=== PATIENT | male | born 1945 | race Caucasian/White ===

== ENCOUNTER 2017-03-27 11:15 | Day surgery (SDC) | payer MEDICARE, BC ==
[2017-03-26 10:01] VITALS: BMI 26.9
[2017-03-27] MEDS ORDERED: Bupivacaine PF 0.5% 30 ML VIAL ONE (11:46)
[2017-03-27] MEDS ORDERED: Fentanyl 100 MCG/2 ML VIAL ONE (11:52)
[2017-03-27] MEDS ORDERED: Lidocaine 1% PF 5 ML VIAL ONE (12:40)
[2017-03-27] MEDS ORDERED: ePHEDrine/0.9% NaCl/PF SYRINGE 50 mg/10 ml ONE (12:40)
[2017-03-27] MEDS ORDERED: Ondansetron HCl/PF 4 MG/2 ML Vial ONE (12:40)
[2017-03-27] MEDS ORDERED: Propofol 200 MG/20 ML VIAL ONE (12:40)
[2017-03-27] MEDS ORDERED: HYDROcodone/Acetaminophen 5/325 mg Tablet ONE (15:07)
--- NOTE | 2017-03-27 15:19 | OP ---
DATE OF SURGERY: 03/27/2017 SURGEON: Ofelia Young DPM. PREOPERATIVE DIAGNOSES: Osteomyelitis, left great toe, hardware, left great toe, chronic ulcer, lef t great toe. POSTOPERATIVE DIAGNOSES: Osteomyelitis, left great toe, hardware, left great toe, chronic ulcer, le ft great toe. PROCEDURES PERFORMED: Removal of screw, left great toe; amputation, left great toe. INJECTABLES: 10 mL of 0.5% Marcaine plain. ANESTHESIA: TIVA with toe block. HEMOSTASIS: Pneumatic ankle tourniquet at 300 mmHg. ESTIMATED BLOOD LOSS: 5 mL MATERIALS: 3-0 Vicryl and 3-0 Prolene. PROCEDURE: The patient was brought into the operating room, and placed on the operating table in stapleton pine position. Well-padded pneumatic ankle tourniquet was placed about the patient's left ankle fol lowing administration of IV anesthesia. Local foot block was given utilizing 10 mL of 0.5% Marcaine plain. The foot was then scrubbed, prepped and draped in the usual aseptic manner. Esmarch bandag e was used to exsanguinate the patient's left foot and the pneumatic ankle tourniquet was inflated t o 300 mmHg, which provided adequate hemostasis throughout the entire procedure. Next, attention was then directed to the dorsal aspect of the patient's left great toe, where a fish-mouth incision was made encompassing the distal aspect of the digit. Upon adequate exposure of the head of the proxim al phalanx, it was carefully resected and passed from the operative field. Next, the implanted scre w was then identified and removed from the proximal phalanx. The wound was irrigated with copious a cora of sterile normal saline. The area was inspected; no remaining necrotic bone was noted. The subcuticular structures were then reapproximated and coapted utilizing 3-0 Vicryl. The skin was cl osed and reapproximated utilizing 3-0 Prolene in a simple interrupted suture technique. A light com pressive dressing was placed on the patient's left foot and the pneumatic ankle tourniquet was relea sed with prompt hyperemic response noted to all digits of left foot. The patient tolerated the proc edure and anesthesia and was transferred to the recovery room with vital signs stable and vascular s tatus intact to all digits of the left foot. Should the patient have any problems prior to his firs t postoperative appointment, he is advised to call. Otherwise, will be seen within 1 week.
--- NOTE | 2017-03-27 15:38 | RAD ---
THREE VIEWS LEFT FOOT: COMPARISON: None. HISTORY: Amputation of the great toe of the left foot. FINDINGS: Three views of the left foot show the patient to be status post amputation of the great toe through the distal mid portion of the proximal phalanx. There are screws in the proximal aspect of the prox imal phalanx and within the great toe metatarsal. Mild soft tissue swelling of the amputation stump is seen. No osseous erosions are seen. IMPRESSION: Status post amputation of the great toe without evidence of complication. POS: [facility]
== END 2017-03-27 15:15 | disposition home or self-care (01) ==
LOC: SDC 11:15
PROVIDERS: ATTEND Podiatrist Foot & Ankle Surgery
PROC: 0Y6N0Z4 Detachment at Left Foot, Complete 1st Ray, Open Approach (ICD-10-PCS; principal; 2017-03-27)
PROC: 0SPQ04Z Removal of Internal Fixation Device from Left Toe Phalangeal Joint, Open Approach (ICD-10-PCS; 2017-03-27)
DX: M86.9 Osteomyelitis, unspecified (principal); L97.529 Non-pressure chronic ulcer of other part of left foot with unspecified severity; Z79.4 Long term (current) use of insulin; Z79.899 Other long term (current) drug therapy; Z96.1 Presence of intraocular lens; Z96.7 Presence of other bone and tendon implants; Z96.643 Presence of artificial hip joint, bilateral; Z95.0 Presence of cardiac pacemaker; Z89.422 Acquired absence of other left toe(s); Z89.421 Acquired absence of other right toe(s); Z98.890 Other specified postprocedural states
CPT/HCPCS: 88305; J2001; J2405; J2704; J3010; J3370; S0020

== ENCOUNTER 2017-08-18 11:33 | Outpatient (CLI) | payer MEDICARE, BC ==
[2017-08-19 14:38] LABS: #Basophils 0.1 thou/uL (0.0-0.2); #Eosinphils 0.3 thou/uL (0.0-0.7); #Lymphocytes 2.2 thou/uL (1.20-3.40); #Monocytes 0.4 thou/uL (0.11-0.59); #Neutrophils 4.2 thou/uL (1.40-6.50); %Basophils 0.8 % (0.0-1.0); %Eosinophils 3.7 % (0.0-10.0); %Lymphocytes 30.9 % (21.0-51.0); %Monocytes 6.1 % (0.0-10.0); %Neutrophils 58.6 % (42.0-75.0); Hemoglobin 15.5 g/dL (14.0-18.0); Mean Corpuscular HGB CONC 32.6 g/dL (32.0-36.0); Mean Corpuscular Hemoglobin 31.4 pg (27.0-31.0); Mean Corpuscular Volume 96.4 fl (80.0-94.0); Mean Platelet Volume 6.9 fL (7.4-10.4); Platelet Count 261 thou/uL (130-400); RBC Distribution Width 12.5 % (11.5-14.5); Red Blood Cell (RBC) Count 4.94 mill/uL (4.70-6.10); White Blood Cell (WBC) Count 7.2 thou/uL (4.8-10.8)
[2017-08-19 14:48] LABS: INR-International Normal Ratio 1.1; PTT 26.9 SEC (22.9-36.1)
[2017-08-19 14:51] LABS: Anion Gap 12 mmol/L (10-20); BUN (Urea Nitrogen) 26 mg/dL (8.4-25.7); Calc. Creatinine Clearance 0 mL/min (70-130); Calcium 9.3 mg/dL (7.8-10.44); Carbon Dioxide 23 mmol/L (23-31); Chloride 105 mmol/L (98-107); Estimated GFR-MDRD Greater than 90; Glucose 188 mg/dL (83-110); Potassium 3.8 mmol/L (3.5-5.1); Sodium 136 mmol/L (136-145)
[2017-08-19 15:20] LABS: Bilirubin Negative (Negative); Blood, Urine Negative (Negative); Clarity CLEAR (Clear); Glucose, Urine (Dipstick) 500 mg/dL (Negative); Leukocyte Negative (Negative); Nitrite Negative (Negative); Protein, Urine (Dipstick) Negative (Neg-Trace); Specific Gravity, Urine 1.029 (1.002-1.036)
--- NOTE | 2017-08-19 15:57 | RAD ---
TWO VIEWS OF THE CHEST 08/19/17 COMPARISON: 12/18/16 HISTORY: Preoperative radiograph prior to surgery. FINDINGS: two views of the chest shows normal sized cardiomediastinal silhouette. The pacemaker is unchanged in position. There is no evidence of consolidation, mass or pleural effusion. The patient has undergone right shoulder arthroplasty. IMPRESSION: No evidence of acute cardiopulmonary disease. POS: [facility]
--- NOTE | 2017-08-19 16:10 | EKG ---
Test Reason : Blood Pressure : / mmHG Vent. Rate : 076 BPM Atrial Rate : 076 BPM P-R Int : 186 ms QRS Dur : 090 ms QT Int : 346 ms P-R-T Axes : 069 044 -34 degrees QTc Int : 389 ms Normal sinus rhythm T wave abnormality, consider inferior ischemia T wave abnormality, consider anterolateral ischemia Abnormal ECG Confirmed by ALEXIS CASTANON ([id number]) on 08/19/2017 4:09:44 PM Referred By: AMARILYS Confirmed By:ALEXIS CASTANON
== END 2017-08-18 11:34 | disposition home or self-care (01) ==
LOC: LABBT 11:33
PROVIDERS: ATTEND Orthopaedic Surgery
DX: Z01.818 Encounter for other preprocedural examination (principal); Z96.651 Presence of right artificial knee joint
CPT/HCPCS: 71046; 80048; 81001; 85025; 85610; 85730; 86850; 86900; 86901; 93005; 93010

== ENCOUNTER 2017-08-26 07:24 | Day surgery (SDC) | payer MEDICARE, BC ==
[2017-08-26] MEDS ORDERED: Levofloxacin 500 mg/D5W 100 ml Premix Bag ONE (08:30)
[2017-08-26] MEDS ORDERED: Tranexamic Acid 1,000 MG/100 ML BAG ONE ×2 (08:31→14:00)
[2017-08-26] MEDS ORDERED: Fentanyl 100 MCG/2 ML VIAL ONE (08:37)
[2017-08-26] MEDS ORDERED: Midazolam HCl 2 mg/2 ml Vial ONE (08:37)
[2017-08-26] MEDS ORDERED: Ropivacaine 0.2% HCl/PF 20 ML ONE (08:37)
[2017-08-26] MEDS ORDERED: Zolpidem Tartrate 5 MG TAB PO PRN ×4 (10:44→15:15)
[2017-08-26] MEDS ORDERED: Promethazine HCl 25 MG/ML VIAL IM PRN ×5 (10:44→15:15)
[2017-08-26] MEDS ORDERED: Ondansetron HCl/PF 4 MG/2 ML Vial IVP PRN ×4 (10:44→15:11)
[2017-08-26] MEDS ORDERED: traMADol HCl 50 MG TAB PO PRN ×3 (10:44→11:31)
[2017-08-26] MEDS ORDERED: Ropivacaine HCl/PF 250 ML in Premix Bag 1 BAG NERVE BLCK SCH (10:44)
[2017-08-26] MEDS ORDERED: Fentanyl 100 MCG/2 ML VIAL IV PRN (10:45)
[2017-08-26] MEDS ORDERED: HYDROcodone/Acetaminophen 7.5/325 mg Tablet PO PRN ×2 (10:47)
[2017-08-26] MEDS ORDERED: diphenhydrAMINE 25 MG CAP PO PRN ×3 (11:31→15:15)
[2017-08-26] MEDS ORDERED: HYDROcodone/Acetaminophen 10/325 mg Tablet PO PRN ×2 (11:31)
[2017-08-26] MEDS ORDERED: Fentanyl 100 MCG/2 ML VIAL SLOW IVP PRN ×2 (11:31)
[2017-08-26] MEDS ORDERED: Acetaminophen 325 MG TAB PO PRN (11:31)
[2017-08-26] MEDS ORDERED: Tranexamic Acid 1,000 MG in Sodium Chloride 0.9% 100 ML IVPB SCH (11:45)
[2017-08-26] MEDS ORDERED: Promethazine HCl 25 MG/ML VIAL SLOW IVP PRN (13:55)
[2017-08-26] MEDS ORDERED: Fentanyl 250 MCG/5 ML VIAL ONE (13:57)
--- NOTE | 2017-08-26 13:57 | OP ---
DATE OF PROCEDURE: 08/26/2017 PREOPERATIVE DIAGNOSIS: End-stage tricompartmental osteoarthritis of right knee with degenerative ge nu valgum. POSTOPERATIVE DIAGNOSIS: End-stage tricompartmental osteoarthritis of right knee with degenerative g enu valgum. OPERATIVE PROCEDURE: Cemented cruciate-sparing computer-assisted navigated right total knee arthropl jessica. SURGEON: Guevara Lowe M.D. SALES CONSULTING DIRECTOR: Abdoulaye Martinez PA-C. ANESTHESIA: General via laryngeal mask airway augmented with indwelling adductor canal block and a s rubia shot sciatic block. COMPONENTS USED: [employer] Triathlon size 5 cemented cruciate-sparing femoral component, p rimary femoral component with a size 6 cemented primary tibial baseplate, 9 mm polyethylene fixed al ring insert, and A35 patellar button. FINDINGS: End-stage severe degenerative tricompartmental disease, hmdg-fh-pugu arthrosis, periarticu lar osteophyte formation, large serous effusion, and changes consistent with degenerative genu valgum . TOURNIQUET TIME: 65 minutes at 300 mmHg. ESTIMATED BLOOD LOSS: Less than 100 mL. DRAINS: None. SPECIMENS: None. COMPLICATIONS: None. COUNTS: Correct. INDICATIONS FOR SURGERY: Dain is a 71-year-old white male who has had progressive right knee pain amplified with standing and walking for the last 5-7 years. He has failed conservative management an d elected to proceed with total knee arthroplasty as a definitive treatment of pain. PROCEDURE IN DETAIL: After informed consent was obtained in the preoperative holding area. The hterese ent was taken to the operative suite where general anesthesia was induced. Once adequate level of ge neral anesthesia was obtained, the patient was positioned and a well-padded tourniquet was placed bakari und the right proximal thigh. The right lower extremity was then prepped and draped in the usual daniel rile fashion. Prior to exsanguination, a time out was called and all members of the surgical team ag perez upon site, surgeon, and patient. The extremity was then exsanguinated and the tourniquet was ra ised. A midline longitudinal incision was then made directly over the patella extending two fingerbr eadths above the superior pole of the patella and two fingerbreadths inferior to the inferior patella r pole of the patella. Deeper subcutaneous layers were dissected sharply and local bleeding was cont rolled with Bovie electrocautery. A quad tendon longitudinal split was then made sharply and a media n parapatellar arthrotomy was carried out both sharp and with Bovie electrocautery, carried down to o ne fingerbreadth medial to the tibial tubercle. The knee was then placed into flexion and the patell a was everted nicely, and a copious fat pad ectomy was performed allowing for greater exposure of the tibia. The computer-assisted distal femoral fiducial was then placed and pinned firmly, and the dis omaira femoral cutting guide was pinned firmly into place. The oscillating saw was then used to remove the appropriate amount of bone. The 4-in-1 cutting block was then placed on the distal femur and the oscillating saw was used to remove the appropriate amount of bone off of the anterior, posterior, an d chamfer cuts. After completion of bone cuts, the anterior cruciate ligament was resected sharply a nd the posterior cruciate ligament retractor was placed and the tibia was subluxed for better exposur e. Partial meniscectomies were carried out, and the tibial computer-assisted fiducial was pinned, an d the cutting guide was placed. Oscillating saw was then used to remove the bone with Hohmann retrac tors used to take care and protect the collateral ligaments. After the tibial resection was performe d, a laminar stamp press operator was placed in between the freshened bone cuts. The knee placed at 90 degrees a nd further bilateral meniscectomies were carried out, and the curved osteotome and curettage was used to remove any excess bone spurs in the posterior compartment. The trial femoral component, tibial b aseplate were placed with the appropriate polyethylene trial insert with an appropriate polyethylene spacer and patellar button. The knee was taken through full range of motion with flexion and extensi on from 0-90 degrees and patellar broach squarely in the trochlea without any squinting or subluxatio n noted. The knee was also stable to varus and valgus stressing at 0, 15, 45, and 90 degrees of flex ion. The drawer was negative. All trial components were then removed and the keel punch was used to provide the appropriate defect in the tibia with a mallet. The freshened bone cuts were copiously ir rigated with pulsatile lavage of about 1-1/2 liters to remove all excess debris. The freshened bone cuts were then dried and with suction and lap sponge. The knee was placed in flexion and retractors were placed to provide access to all bone cuts. Tobramycin impregnated methyl methacrylate cement wa s then placed on the freshened bone cuts and implants which were malleted firmly into place. Curetta ge and Ira elevators were used to remove any excess bone cement. The knee was placed into full ext ension and the patellar button was placed under compression, and the cement was allowed to cure. Onc e completed, the components were again taken through full range of motion and copious irrigation of t he knee was carried out with another liter of normal saline. All components were inspected fully wit h full range of motion and varus and valgus stressing. There was no laxity noted and full extension w as observed clinically. Primary closure was accomplished with #2 interrupted Vicryl stitch of the ar throtomy defect. This was oversewn with a #2 running Quill barbed stitch. The subcutaneous layer wa s then closed with a running 0 barbed Monocryl stitch and skin closure accomplished with a running stapleton bcuticular 3-0 Monocryl barbed Quill stitch and augmented with cement on the skin. Tourniquet was lo wered. Good spontaneous return of distal pulses was noted clinically and a sterile dressing was appl ied to the incision. The procedure was terminated without any complications. The patient was awaken ed in the operative suite and taken to the recovery room in stable condition.
[2017-08-26] MEDS ORDERED: HYDROmorphone 0.5 MG/0.5 ML SYRINGE ONE ×4 (14:37→15:55)
[2017-08-26] MEDS ORDERED: diphenhydrAMINE 50 MG/ML VIAL IVP PRN ×2 (15:11→15:15)
[2017-08-26] MEDS ORDERED: diphenhydrAMINE 50 MG/ML VIAL IM PRN ×2 (15:11→15:15)
[2017-08-26] MEDS ORDERED: Naloxone HCl 0.4 mg/ml Vial IV PRN ×2 (15:11→15:15)
[2017-08-26] MEDS ORDERED: Communication Order-Pharmacy FS SCH ×2 (15:15)
[2017-08-26] MEDS ORDERED: Fentanyl 5000 MCG/250 ML CADD IVPB PRN ×2 (15:15→20:03)
[2017-08-26] MEDS ORDERED: Ropivacaine 0.2% HCl/PF (40 MG/20 ML VIAL) ONE (15:28)
[2017-08-26] MEDS ORDERED: Ropivacaine 0.5% HCl/PF (150 MG/30 ML VIAL) ONE (15:28)
[2017-08-26] MEDS ORDERED: fentaNYL Citrate/PF 2,000 MCG in Sodium Chloride 0.9% 60 ML IV PRN (15:30)
[2017-08-26] MEDS ORDERED: Lidocaine 1% PF 5 ML VIAL ONE (15:48)
[2017-08-26] MEDS ORDERED: PROPOFOL 200 MG/20 ML VIAL ONE (15:48)
--- NOTE | 2017-08-26 16:06 | RAD ---
RIGHT KNEE TWO VIEWS: History: Total knee arthroplasty. FINDINGS/IMPRESSION: There are post op changes of total knee arthroplasty in good position and alignment. Soft tissue air is present. POS: OFF
--- NOTE | 2017-08-26 18:40 | PDOC.PN ---
- Subjective Encounter Start Date: 08/26/17 Encounter Start Time: 18:00 Patient seen and examined. Pain controlled. No CP/SOB - Objective MAR Reviewed: Yes Vital Signs & Weight: Vital Signs (12 hours) Temp Pulse Resp BP Pulse Ox 08/26/17 18:05 97.5 F L 76 18 08/26/17 16:40 97.5 F L 76 18 175/75 H 95 Weight Weight 6.138 oz EKG Reviewed by me: Yes (SR, NSST changes - no previous EKG to compare) Phys Exam - Physical Examination Constitutional: NAD Respiratory: no wheezing, no rhonchi Cardiovascular: RRR, no rub Gastrointestinal: soft, non-tender, positive bowel sounds Musculoskeletal: no edema Neurological: moves all 4 limbs Psychiatric: A&O x 3 Dx/Plan - Plan plan discussed w/ family, DVT proph w/SCDs IMPRESSION: 1. DM2 with diabetic neuropathy 2. HTN 3. Macular deg/Legal blindness 4. Recurrent syncope s/p Pacemaker - follows Dr Fang - s/p Negative stress test 2016 5. Dyslipidemia 6. Hypothyroidism PLAN: * Cont post-op care * Hold Levemir today - Will start in AM at 1/2 dose * Acuchecks ACHS * Cont current home meds as below - Lisinopril and Levothyroxine * Will follow. Thank you for this consultation. * Full code. Patient makes his own decisions with the help of his family. Review of Systems - Review of Systems Respiratory: negative: Cough, Dry, Shortness of Breath, Hemoptysis, SOB with Excertion, Pleuritic Pain, Sputum, Wheezing Cardiovascular: negative: chest pain, palpitations, orthopnea, paroxysmal nocturnal dyspnea, edema, light headedness Gastrointestinal: negative: Nausea, Vomiting, Abdominal Pain, Diarrhea, Constipation, Melena, Hematochezia - Medications/Allergies Allergies/Adverse Reactions: Allergies Allergy/AdvReac Type Severity Reaction Status Date / Time Penicillins Allergy Verified 08/19/17 13:06 Medications: Current Medications Acetaminophen (Tylenol) 650 mg PO Q4H PRN PRN Reason: STUART/ T > 101F; Mild Pain (1-3) Hydrocodone Bitart/Acetaminophen (Midnight 7.5/325) 1 tab PO Q4H PRN PRN Reason: Mild Pain (1-3) Hydrocodone Bitart/Acetaminophen (Midnight 7.5/325) 2 tab PO Q4H PRN PRN Reason: Moderate Pain (4-6) Aspirin (Ecotrin) 81 mg PO BID [facility] Celecoxib (Celebrex) 200 mg PO DAILY [facility] Diphenhydramine HCl (Benadryl) 25 mg PO Q6H PRN PRN Reason: Itching Diphenhydramine HCl (Benadryl) 25 mg IVP Q3H PRN PRN Reason: Itching Diphenhydramine HCl (Benadryl) 25 mg PO Q3H PRN PRN Reason: Itching Diphenhydramine HCl (Benadryl) 25 mg IM Q3H PRN PRN Reason: Itching Fentanyl (Sublimaze) 50 mcg IV Q1H PRN PRN Reason: BREAKTHROUGH PAIN Ferrous Gluconate (Fergon) 324 mg PO BID [facility] Ropivacaine 250 ml/ Device 250 mls @ 0 mls/hr [facility] PRN Reason: As Directed Levofloxacin 500 mg/ Device 100 mls @ 100 mls/hr IVPB 0900 [facility] Stop: 08/27/17 09:59 Sodium Chloride (Normal Saline 0.9%) 1,000 mls @ 100 mls/hr IV .Q10H [facility] Vancomycin HCl 1.5 gm/ Sodium (Chloride) 300 mls @ 200 mls/hr IVPB 2100 [facility] Stop: 08/26/17 22:29 Iron/Minerals/Multivitamins (Theragran M) 1 tab PO DAILY [facility] Ketorolac Tromethamine (Toradol) 15 mg IVP Q6H PRN PRN Reason: Moderate Pain (4-6) Stop: 08/29/17 10:45 Naloxone HCl (Narcan) 0.2 mg IV Q5MIN PRN PRN Reason: Opiate Reversal Ondansetron HCl (Zofran) 4 mg IVP Q6H PRN PRN Reason: Nausea/Vomiting Ondansetron HCl (Zofran) 4 mg IVP Q6H PRN PRN Reason: Nausea/Vomiting Promethazine HCl (Phenergan) 12.5 mg IM Q4H PRN PRN Reason: Nausea/Vomiting Promethazine HCl (Phenergan) 12.5 mg IM Q4H PRN PRN Reason: Nausea/Vomiting Senna/Docusate Sodium (Senokot S) 2 tab PO BID [facility] Sodium Chloride (Flush - Normal Saline) 10 ml IVF PRN PRN PRN Reason: Saline Flush Tramadol HCl (Ultram) 50 mg PO Q6H PRN PRN Reason: Mild Pain (1-3) Tramadol HCl (Ultram) 100 mg PO Q6H PRN PRN Reason: Moderate Pain 4-6 Zolpidem Tartrate (Ambien) 5 mg PO HSPRN PRN PRN Reason: Insomnia Zolpidem Tartrate (Ambien) 5 mg PO HSPRN PRN PRN Reason: Insomnia
[2017-08-26] MEDS: Sodium Chloride 0.9% 1,000 ML IV SCH (18:44)
[2017-08-26] MEDS ORDERED: Dextrose 50% Abboject 50 ML SYRINGE SLOW IVP PRN (18:45)
[2017-08-26] MEDS ORDERED: Insulin Regular 300 UNITS/3 ML VIAL SC PRN ×2 (18:45)
[2017-08-26] MEDS ORDERED: Dextrose 5% in Water 1,000 ML IV PRN (18:45)
[2017-08-26] MEDS ORDERED: hydrALAZINE 20 MG/ML VIAL SLOW IVP PRN (18:46)
[2017-08-26] MEDS ORDERED: Benzonatate 100 MG CAP PO PRN (20:05)
[2017-08-26] MEDS: Aspirin 81 mg Enteric Coated Tablet PO SCH (20:51)
[2017-08-26] MEDS: Senokot S 8.6-50 MG TAB PO SCH (20:52)
[2017-08-26] MEDS: Ferrous Gluconate 324 MG TAB PO SCH (20:52)
[2017-08-26] MEDS ORDERED: Vancomycin HCl 1.5 GM in Sodium Chloride 0.9% 250 ML 300 ML IVPB SCH (21:00)
[2017-08-27] MEDS: Sodium Chloride 0.9% 1,000 ML IV SCH ×3 (05:28→20:51)
[2017-08-27] MEDS: Levothyroxine Sodium 50 MCG TAB PO SCH (05:28)
[2017-08-27] MEDS: Ketorolac Tromethamine 30 MG/ML VIAL IVP PRN (05:34)
[2017-08-27 06:14] LABS: Hemoglobin 12.7 g/dL (14.0-18.0); Mean Corpuscular HGB CONC 33.6 g/dL (32.0-36.0); Mean Corpuscular Hemoglobin 32.8 pg (27.0-31.0); Mean Corpuscular Volume 97.4 fl (80.0-94.0); Mean Platelet Volume 7.3 fL (7.4-10.4); Platelet Count 200 thou/uL (130-400); RBC Distribution Width 12.1 % (11.5-14.5); Red Blood Cell (RBC) Count 3.87 mill/uL (4.70-6.10); White Blood Cell (WBC) Count 8.9 thou/uL (4.8-10.8)
[2017-08-27] MEDS ORDERED: Insulin Detemir 100 UNITS/ML 20 UNITS in Pre-Filled Syringe 1 EACH SC SCH (09:00)
[2017-08-27] MEDS: CeleCOXIB 100 MG CAP PO SCH (09:33)
[2017-08-27] MEDS: Lisinopril 5 MG TAB PO SCH (09:33)
[2017-08-27] MEDS: Multivitamin W/ Minerals 1 TAB PO SCH (09:34)
[2017-08-27] MEDS: Senokot S 8.6-50 MG TAB PO SCH ×2 (09:34→20:51)
[2017-08-27] MEDS: Ferrous Gluconate 324 MG TAB PO SCH ×2 (09:34→20:51)
[2017-08-27] MEDS: Aspirin 81 mg Enteric Coated Tablet PO SCH ×2 (09:35→20:51)
[2017-08-27] MEDS: Insulin Detemir 100 UNITS/ML 50 UNITS in Pre-Filled Syringe 1 EACH SC SCH (09:45)
[2017-08-27 11:54] VITALS: BMI 27.6
[2017-08-27] MEDS ORDERED: Insulin Regular 300 UNITS/3 ML VIAL SC PRN (13:06)
[2017-08-27] MEDS ORDERED: Insulin Detemir 100 UNITS/ML 15 UNITS in Pre-Filled Syringe SC SCH (17:30)
[2017-08-27] MEDS ORDERED: Insulin Detemir 100 UNITS/ML 15 UNITS in Pre-Filled Syringe 1 EACH SC SCH (21:00)
[2017-08-28] MEDS: Ketorolac Tromethamine 30 MG/ML VIAL IVP PRN (03:12)
[2017-08-28] MEDS: Sodium Chloride 0.9% 1,000 ML IV SCH (05:08)
[2017-08-28 05:36] LABS: Hemoglobin 11.1 g/dL (14.0-18.0); Mean Corpuscular HGB CONC 33.7 g/dL (32.0-36.0); Mean Corpuscular Hemoglobin 32.8 pg (27.0-31.0); Mean Corpuscular Volume 97.4 fl (80.0-94.0); Mean Platelet Volume 7.2 fL (7.4-10.4); Platelet Count 162 thou/uL (130-400); Red Blood Cell (RBC) Count 3.37 mill/uL (4.70-6.10); White Blood Cell (WBC) Count 7.7 thou/uL (4.8-10.8)
[2017-08-28] MEDS: Levothyroxine Sodium 50 MCG TAB PO SCH (05:56)
[2017-08-28] MEDS ORDERED: Tamsulosin HCl 0.4 MG CAP PO SCH (09:00)
[2017-08-28] MEDS: Aspirin 81 mg Enteric Coated Tablet PO SCH (10:38)
[2017-08-28] MEDS: Ferrous Gluconate 324 MG TAB PO SCH (10:40)
[2017-08-28] MEDS: CeleCOXIB 100 MG CAP PO SCH (10:42)
[2017-08-28] MEDS: Lisinopril 5 MG TAB PO SCH (10:42)
[2017-08-28] MEDS: Multivitamin W/ Minerals 1 TAB PO SCH (10:43)
[2017-08-28] MEDS: Senokot S 8.6-50 MG TAB PO SCH (10:43)
[2017-08-28] MEDS: Insulin Detemir 100 UNITS/ML 50 UNITS in Pre-Filled Syringe 1 EACH SC SCH (10:50)
[2017-08-28 11:23] VITALS: TEMP 98
[2017-08-28 12:14] VITALS: BP 157/75
== END 2017-08-28 12:20 | disposition home health service (06) ==
LOC: SDC 07:24 → SURG A 11:32 → SDC 08-28 12:20
PROVIDERS: ATTEND Orthopaedic Surgery
PROC: 8E0YXBZ Computer Assisted Procedure of Lower Extremity (ICD-10-PCS; principal; 2017-08-26)
PROC: 0SQC0ZZ Repair Right Knee Joint, Open Approach (ICD-10-PCS; 2017-08-26)
DX: Z88.0 Allergy status to penicillin; I10 Essential (primary) hypertension; E78.5 Hyperlipidemia, unspecified; E03.9 Hypothyroidism, unspecified; E11.40 Type 2 diabetes mellitus with diabetic neuropathy, unspecified; M17.11 Unilateral primary osteoarthritis, right knee; Z98.890 Other specified postprocedural states
CPT/HCPCS: 20985; 27409; 73560; 82962; 85027; 86850; 86900; 86901; 97110; 97116 ×2; 97139 ×3; 97150; 97530; C1713; C1776; G8978; G8979; J3010; 36415; 36416; J1170; J1815; J1885; J1956; J2001; J2250; J2704; J2795; J3370; J7050